=== PATIENT | female | born 1990 | race Two or more races ===

== ENCOUNTER 2024-01-26 10:08 | Emergency (ER) | payer OTHER ==
[~2024-01-26] VITALS: Ht 157.5 cm; Wt 74.4 kg
[2024-01-26 10:12] VITALS: BP 114/70; O2SAT 99
[2024-01-26] MEDS ORDERED: FAMOtidine 10 MG/ML (4ML VIAL) IV ONE (10:30)
[2024-01-26] MEDS ORDERED: ONDANSETRON HCL 2 MG/ML VIAL IV ONE (10:30)
[2024-01-26] MEDS ORDERED: 0.9 % SODIUM CHLORIDE 1,000 ML IV ONE (10:30)
[2024-01-26 11:23] LABS: HEMATOCRIT 37.2 % (36.0-45.00); HEMOGLOBIN 11.6 g/dL (12.0-15.00); MEAN CELL VOLUME 71.7 fL (80.00-100.00); MEAN CORPUSCULAR HEMOGLOBIN 22.3 pg (27.00-32.0); MEAN CORPUSCULAR HGB CONC 31.1 g/dl (32.0-36.0); PLATELET COUNT 468 K/uL (150-450); RED CELL DISTRIBUTION WIDTH 17.8 % (11.5-14.5)
[2024-01-26 11:42] LABS: ALBUMIN 3.3 gm/dL (3.4-5.0); ALKALINE PHOSPHATASE 39 U/L (50-136); ALT/SGPT 180 U/L (12-78); ANION GAP 10 (10.0-20.0); AST/SGOT 58 U/L (15-37); BILIRUBIN TOTAL 0.24 mg/dL (0.3-1.2); BLOOD UREA NITROGEN 8 mg/dL (7-18); BUN CREA RATIO 12 (7.0-25.0); CALCIUM 8.5 mg/dL (8.5-10.1); CARBON DIOXIDE 25 mEq/L (21-32); CHLORIDE 110 mmol/L (98-107); CREATININE SERUM 0.68 mg/dL (0.55-1.02); GFR 100.27; GLUCOSE FASTING 77 mg/dL (65-100); OSMOLALITY SERUM 278 MOSM/KG (275-295); POTASSIUM 3.85 mEq/L (3.5-5.1); SODIUM 141 mmol/L (136-145); TOTAL PROTEIN 7.3 gm/dL (6.4-8.2)
[2024-01-26 11:44] LABS: INR 1.15; PARTIAL THROMBOPLASTIN TIME 26.8 SECONDS (22.0-34.0); PROTHROMBIN TIME 12.4 SECONDS (9.0-11.5)
[2024-01-26 12:40] LABS: HCG QUANTITATIVE < 1 mUI/mL (1-3)
[2024-01-26 13:42] LABS: PH,URINE 7.5 (5.0-8.0); URINE APPEARANCE Clear; URINE BILIRRUBIN Negative (NEGATIVE); URINE BLOOD Small; URINE COLOR Yellow; URINE GLUCOSE Negative (NEGATIVE); URINE KETONE 15 (NEGATIVE); URINE LEUKOCYTE Trace; URINE NITRATE Negative; URINE PROTEIN Negative (NEGATIVE); URINE UROBILINOGEN 0.2 E.U./dl
[2024-01-26 13:48] LABS: URINE BACTERIA 1611.4 uL (0.0-1933); URINE EPITHELIAL CELLS 36.3 uL (0.0-38.8); URINE RBC 21.8 uL (0.0-20.8); URINE WBC 17.9 uL (0.0-23.2)
[2024-01-26 14:04] LABS: URINE CAST 0.15 uL (0.0-1.40)
[2024-01-26 14:07] LABS: URINE YEAST NEGATIVE /hpf
[2024-01-26] MEDS ORDERED: PROBIOTIC1 EAC2 PO (15:29)
[2024-01-26] MEDS ORDERED: PEPCID AC20 MG PO (15:29)
[2024-01-26] MEDS ORDERED: CHLORDIAZEPOXI1 EACH PO (15:29)
== END 2024-01-26 18:31 | disposition home or self-care (01) ==
LOC: ER 10:08
PROVIDERS: General Practice
DX: K52.9 Noninfective gastroenteritis and colitis, unspecified (principal); N80.8 Other endometriosis

== ENCOUNTER 2024-02-19 12:30 | Inpatient (IN) | payer OTHER ==
[~2024-02-19] VITALS: Ht 157.5 cm; Wt 69.9 kg
[~2024-02-19 12:30] MED LIST: CHLORDIAZEPOXI1 EACH PO; PEPCID AC20 MG PO; PROBIOTIC1 EAC2 PO
[2024-02-25 10:30] LABS: RH POSITIVE
[2024-02-25] MEDS ORDERED: THROMBIN,HU/FIBRINOGEN/CALCIUM 4 ML SYRINGE TOP ONE (17:30)
[2024-02-25] MEDS ORDERED: CEFAZOLIN SODIUM 1,000 MG VIAL IV ONE (17:30)
[2024-02-25] MEDS ORDERED: VISTASEAL DUAL APPICATOR 1 EACH APPL TOP ONE ×2 (17:30→17:45)
[2024-02-25] MEDS ORDERED: POVIDONE-IODINE 118 ML BOTT TOP ONE (17:45)
[2024-02-25] MEDS ORDERED: RINGERS SOLUTION,LACTATED 1,000 ML IV SCH (18:28)
[2024-02-25] MEDS ORDERED: ONDANSETRON HCL 2 MG/ML VIAL IV SCH (18:29)
[2024-02-25] MEDS ORDERED: CEFOXITIN SODIUM 2,000 MG VIAL IV SCH (18:29)
[2024-02-25] MEDS ORDERED: MORPHINE SULFATE 4 MG/ML VIAL IV SCH (18:30)
[2024-02-25] MEDS ORDERED: ACETAMINOPHEN 325 MG TABLET PO STA (18:31)
[2024-02-25] MEDS ORDERED: GABAPENTIN 100 MG CAPSULE PO STA (18:31)
[2024-02-25] MEDS ORDERED: CELECOXIB 200 MG CAPSULE PO STA (18:31)
[2024-02-25] MEDS ORDERED: SUGAMMADEX SODIUM 200 MG/2 ML VIAL IV ONE (19:00)
[2024-02-25 21:00] VITALS: BP 127/76; O2SAT 98
[2024-02-25 21:05] LABS: HEMATOCRIT 34.3 % (36.0-45.00); HEMOGLOBIN 10.6 g/dL (12.0-15.00); MEAN CORPUSCULAR HEMOGLOBIN 21.6 pg (27.00-32.0); PLATELET COUNT 541 K/uL (150-450); RED BLOOD COUNT 4.91 M/uL (4.00-6.00); RED CELL DISTRIBUTION WIDTH 18.7 % (11.5-14.5)
[2024-02-25 21:20] LABS: CALCIUM 8.4 mg/dL (8.5-10.1); CREATININE SERUM 0.65 mg/dL (0.55-1.02); GFR 104.97; POTASSIUM 4.9 mEq/L (3.5-5.1)
[2024-02-25 21:43] LABS: MEAN CELL VOLUME 69.7 fL (80.00-100.00)
[2024-02-26] VITALS: BP 132/69; O2SAT 100
[2024-02-26 08:00] VITALS: BP 110/68; O2SAT 97
[2024-02-26] MEDS ORDERED: GABAPENTIN 100 MG CAPSULE PO SCH (09:00)
[2024-02-26] MEDS ORDERED: CELECOXIB 200 MG CAPSULE PO SCH (09:00)
[2024-02-26] MEDS ORDERED: ACETAMINOPHEN 500 MG GEL..CAP PO SCH (12:00)
[2024-02-26] MEDS ORDERED: MORPHINE SULFATE 4 MG/ML CARTRIDGE IV SCH (12:00)
[2024-02-26 15:00] VITALS: BP 121/75; O2SAT 100
[2024-02-27 00:49] VITALS: BP 136/89; O2SAT 100
[2024-02-27 08:00] VITALS: BP 109/74; O2SAT 97
[2024-02-27 08:13] LABS: HEMATOCRIT 35.7 % (36.0-45.00); HEMOGLOBIN 10.9 g/dL (12.0-15.00); MEAN CELL VOLUME 70.6 fL (80.00-100.00); MEAN CORPUSCULAR HEMOGLOBIN 21.6 pg (27.00-32.0); MEAN CORPUSCULAR HGB CONC 30.7 g/dl (32.0-36.0); PLATELET COUNT 521 K/uL (150-450); RED BLOOD COUNT 5.05 M/uL (4.00-6.00); RED CELL DISTRIBUTION WIDTH 18.7 % (11.5-14.5)
[2024-02-27 09:06] LABS: ALBUMIN 3.1 gm/dL (3.4-5.0); BILIRUBIN TOTAL 0.62 mg/dL (0.3-1.2); CALCIUM 8.3 mg/dL (8.5-10.1); CREATININE SERUM 0.65 mg/dL (0.55-1.02); GFR 104.97; GLOBULINA 3.5 G/DL (2.4-3.5); POTASSIUM 4.02 mEq/L (3.5-5.1); TOTAL PROTEIN 6.6 gm/dL (6.4-8.2)
[2024-02-27 09:57] LABS: URINE APPEARANCE Clear; URINE BILIRRUBIN Negative (NEGATIVE); URINE BLOOD Moderate; URINE COLOR Yellow; URINE GLUCOSE Negative (NEGATIVE); URINE LEUKOCYTE Negative; URINE NITRATE Negative; URINE PROTEIN Negative (NEGATIVE)
[2024-02-27 10:01] LABS: URINE RBC 196.4 uL (0.0-20.8); URINE WBC 18.5 uL (0.0-23.2)
[2024-02-27] MEDS ORDERED: POLYETHYLENE GLYCOL 3350 17 GM BLIST.PACK PO STA (10:15)
[2024-02-27 10:36] LABS: URINE BACTERIA 3.7 uL (0.0-1933); URINE CAST 0.15 uL (0.0-1.40); URINE KETONE 80 (NEGATIVE)
[2024-02-27 16:00] VITALS: BP 95/53; O2SAT 99
[2024-02-27] MEDS ORDERED: FAMOtidine 20 MG TABLET PO SCH (17:00)
[2024-02-27] MEDS ORDERED: LACTOBACILLUS ACIDOPHILUS 1 CAP CAP PO SCH (17:00)
[2024-02-28 00:49] VITALS: BP 118/71; O2SAT 99
[2024-02-28 09:45] VITALS: BP 135/82; O2SAT 98
== END 2024-02-28 11:39 | disposition home or self-care (01) | DRG 743 ==
LOC: ADM 12:30 → EDSTATUS 12:30 → O/R 02-25 08:39 → OB/GYN 02-25 12:30 → SURH 02-25 19:31
PROVIDERS: Surgery; ADMIT Obstetrics & Gynecology Gynecology; ATTEND Obstetrics & Gynecology Gynecology
PROC: 0DNW4ZZ Release Peritoneum, Percutaneous Endoscopic Approach (ICD-10-PCS; 2024-02-25)
PROC: 0DTJ4ZZ Resection of Appendix, Percutaneous Endoscopic Approach (ICD-10-PCS; 2024-02-25)
PROC: 0UT94ZZ Resection of Uterus, Percutaneous Endoscopic Approach (ICD-10-PCS; principal; 2024-02-25 14:00)
PROC: 0UT74ZZ Resection of Bilateral Fallopian Tubes, Percutaneous Endoscopic Approach (ICD-10-PCS; 2024-02-25 14:00)
DX: N72 Inflammatory disease of cervix uteri (principal); N84.1 Polyp of cervix uteri; K52.9 Noninfective gastroenteritis and colitis, unspecified; N94.5 Secondary dysmenorrhea; N80.559 Endometriosis of other parts of the colon, unspecified depth; Z20.822 Contact with and (suspected) exposure to COVID-19; K66.0 Peritoneal adhesions (postprocedural) (postinfection)